=== PATIENT | female | born 2005 | race African-American/Black ===

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

== ENCOUNTER 2025-04-28 12:19 | Emergency (ER) | payer OTHER, MEDICAID ==
[~2025-04-28] VITALS: Ht 167.6 cm; Wt 46.0 kg
[~2025-04-28 12:19] MED LIST: NEOM28.37 TP
[2025-04-28 12:25] VITALS: TEMP 36.9; O2SAT 100
[2025-04-28] MEDS: ONDANSETRON HCL 4MG/2ML INJ IM NR (14:00)
[2025-04-28] MEDS: ACETAMINOPHEN 325MG TABLET PO NR (14:55)
[2025-04-28] MEDS ORDERED: ONDA4TAB50 PO (15:07)
[2025-04-28] MEDS ORDERED: NAPR-681 PO (15:07)
[2025-04-28] MEDS ORDERED: CYCL5TAB3 MT (15:07)
[2025-04-28 15:25] VITALS: BP 117/61; PULSE 78; RESP 12; O2SAT 100
== END 2025-04-28 15:45 | disposition home or self-care (01) ==
LOC: ER 12:19
DX: S16.1XXA Strain of muscle, fascia and tendon at neck level, initial encounter (principal); S39.012A Strain of muscle, fascia and tendon of lower back, initial encounter; S00.93XA Contusion of unspecified part of head, initial encounter; R51.9 Headache, unspecified; M25.512 Pain in left shoulder; V89.2XXA Person injured in unspecified motor-vehicle accident, traffic, initial encounter; Y93.89 Activity, other specified; Y92.410 Unspecified street and highway as the place of occurrence of the external cause; Y99.8 Other external cause status
CPT/HCPCS: 99284; 70450; 81025; 72100; 73030; 72125; J2405